=== PATIENT | male | born 1960 | race Caucasian/White ===

== ENCOUNTER 2020-08-24 05:22 | Day surgery (SDC) | payer OTHER ==
[2020-08-19 12:00] LABS: BASOPHILS % (AUTO) 0.7 % (0-1); EOSINOPHILS # (AUTO) 0.1 X10'3 (0-0.9); EOSINOPHILS % (AUTO) 1.7 % (0-6); LYMPHOCYTES # (AUTO) 1.7 X10'3 (1.1-4.8); LYMPHOCYTES % (AUTO) 26.1 % (21-51); MEAN CORPUSCULAR HEMOGLOBIN 31.4 PG (27.0-31.0); MEAN CORPUSCULAR HGB CONC 33.9 g/dL (33.0-36.5); MEAN CORPUSCULAR VOLUME 92.8 FL (78-98); MEAN PLATELET VOLUME 8.2 FL (7.4-10.4); MONOCYTES # (AUTO) 0.7 X10'3 (0-0.9); MONOCYTES % (AUTO) 10.8 % (2-12); NEUTROPHILS # (AUTO) 3.9 X10'3 (1.8-7.7); NEUTROPHILS % (AUTO) 60.7 % (42-75); PRE OP HEMATOCRIT 41.7 % (42.0-52.0); PRE OP HEMOGLOBIN 14.1 g/dL (14.0-17.9); PRE OP PLATELET COUNT 227 X10'3 (140-440); RED CELL DISTRIBUTION WIDTH 13.6 % (11.5-14.5)
[2020-08-19 12:03] LABS: ALBUMIN 3.9 G/DL (3.4-5.0); ALBUMIN/GLOBULIN RATIO 1.1 (1.1-1.5); ALKALINE PHOSPHATASE 65 IU/L (46-116); BLOOD UREA NITROGEN 8 MG/DL (7-18); BUN/CREATININE RATIO 7.4 (5.4-32.0); CHLORIDE 100 MMOL/L (99-107); CREATININE 1.08 MG/DL (0.60-1.10); PRE OP ALT 51 U/L (30-65); PRE OP ANION GAP 7 (8-16); PRE OP AST 30 U/L (10-37); PRE OP BILIRUB, TOTAL 0.3 MG/DL (0.0-1.0); PRE OP GLUCOSE 134 MG/DL (70-104); PRE OP POTASSIUM 4.3 MMOL/L (3.4-5.1); PRE OP SODIUM 137 MMOL/L (135-145); TOTAL CARBON DIOXIDE 29.9 MMOL/L (24-32); TOTAL PROTEIN 7.6 G/DL (6.4-8.2); eGFR 70 ML/MIN
[2020-08-24] VITALS (7 sets, daily range): BP systolic 105–128; BP diastolic 70–88
[~2020-08-24] VITALS: Ht 182.9 cm; Wt 117.4 kg
[~2020-08-24 05:22] MED LIST: ATEN-27 PO; LEVO100T PO; LOSA50TA64 PO; METF500T PO; SIMV-42 PO; ringers solution, lacted 1,000 ML IV SCH
[2020-08-24] MEDS ORDERED: ceFAZolin 2gm in dextrose, iso 50 ML IV ONE (05:30)
[2020-08-24] MEDS ORDERED: famotidine 20mg tablet PO ONE (05:30)
[2020-08-24] MEDS ORDERED: DOCUMENT DATE & TIME OF BETA-BLOCKER PO ONE (05:30)
[2020-08-24] MEDS ORDERED: cloNIDine hcl/PF 100mcg/ml inj ONE (07:28)
[2020-08-24] MEDS ORDERED: sevoflurane 250ml liquid IH ONE (07:31)
[2020-08-24] MEDS ORDERED: MIDAZolam 5mg/5ml vial ONE (07:33)
[2020-08-24] MEDS ORDERED: propofol inj 20 ML IV ONE (07:33)
[2020-08-24] MEDS ORDERED: fentaNYL/PF 50MCG/1 ML 2ML syringe ONE (07:33)
[2020-08-24] MEDS ORDERED: ROPIVAcaine 0.5% (5mg/ml) 30ml vial ONE (07:37)
[2020-08-24] MEDS ORDERED: ePHEDrine 50MG/ML INJ. ONE (07:55)
[2020-08-24] MEDS ORDERED: BUPIVAcaine/PF 2.5mg/ml (0.25%) 10ml vial ONE (08:06)
[2020-08-24] MEDS ORDERED: ringers solution, lacted 1,000 ML IV SCH (08:55)
[2020-08-24] MEDS ORDERED: morphine 4 MG/ML inj SYRINge IV PRN (08:55)
[2020-08-24] MEDS ORDERED: morphine 2 MG/ML inj. syringe IV PRN (08:55)
[2020-08-24] MEDS ORDERED: proCHLORperazine 10 MG/2 ml inj IV PRN (08:55)
[2020-08-24] MEDS ORDERED: meperidine/PF 25mg/ml syringe IV PRN ×3 (08:55)
[2020-08-24] MEDS ORDERED: ondansetron/PF 4mg/2ml inj IV PRN (08:55)
[2020-08-24] MEDS ORDERED: HYDROcodone/acetaminophen 10/325mg tab PO PRN (09:10)
--- NOTE | 2020-08-24 09:10 | NUR ---
PATIENT ARRIVED TO [facility]ERY [facility]IA [facility] WITH DR ALCARAZ, PATIENT SLEEPY, DENIES PAIN, V/S WNL, NEUROVASCULAR CHECKS INTACT-+CAP REFILL TO RIGHT HAND, PULES PRESENT, WARM AND PINK, RIGHT ARM IN SLING IWTH COLD WRAP IN PLACE,, 20G PIV LWRIST-LR RUNNING , DRESSING TO RIGHT KNEE CDI W/ COLD POWDER PACK AND IMMOBILIZER BRACE W/ SCD ON. F/C DRAINING CLEAR YELLOW URINE. SENSATION T-9. Addendum: 08/24/20 at 0919 by Devika Lock RN PATIENT ARRIVED TO RECOVERY [facility]IA [facility] WITH DR ALCARAZ, PATIENT SLEEPY, DENIES PAIN, V/S WNL, NEUROVASCULAR CHECKS INTACT-+CAP REFILL TO RIGHT HAND, PULSES PRESENT, WARM AND PINK, RIGHT ARM IN SLING WITH COLD WRAP IN PLACE, 20G PIV LWRIST-LR RUNNING
--- NOTE | 2020-08-24 10:20 | NUR ---
PATIENT A&OX4, DENIES PAIN, V/S WNL, NEUROVASCULAR CHECKS-ABLE TO MOVE FINGERS, SENSATION INTACT, WARM AND PINK, 20G PIV D/C WITH NO COMPLICATIONS OBSERVED , DRESSING TO RIGHT SHOULDER CDI W/ COLD POWDER PACK-ARM IN SLING. I HAVE REVIEWED D/C INSTRUCTIONS WITH PATIENT AND FAMILY AND THEY HAVE VERBALIZED UNDERSTANDING. DR BAZZI ELECTRONICALLY ORDER PAIN MEDS AT [facility], PATIENT D/C HOME WITH ALL BELONGINGS AND FAMILY GAVE TRANSPORT HOME.
== END 2020-08-24 10:20 | disposition home or self-care (01) ==
LOC: PAS 05:22
PROVIDERS: ATTEND Orthopaedic Surgery
DX: M75.41 Impingement syndrome of right shoulder (principal); M75.21 Bicipital tendinitis, right shoulder; M19.011 Primary osteoarthritis, right shoulder; M75.51 Bursitis of right shoulder; G89.18 Other acute postprocedural pain; M25.511 Pain in right shoulder; M75.111 Incomplete rotator cuff tear or rupture of right shoulder, not specified as traumatic; E11.9 Type 2 diabetes mellitus without complications; E78.00 Pure hypercholesterolemia, unspecified
CPT/HCPCS: 29826; 29828; 36415; 64415; 76942; 80053; 82948; 85025; 87635; 93005; C1713; J0735; J2250; J2704; J3010; J3490; A4565; A4618; A6449; A7000; J2795; J7120